=== PATIENT | female | born 1985 | race Caucasian/White ===

== ENCOUNTER 2019-12-20 15:41 | Outpatient (CLI) | payer OTHER | END 2019-12-20 15:55 | disposition home or self-care (01) | LOC: NST 15:41 | PROVIDERS: ATTEND Obstetrics & Gynecology | DX: Z34.83 Encounter for supervision of other normal pregnancy, third trimester (principal) ==

== ENCOUNTER 2019-12-29 09:31 | Inpatient (IN) | payer OTHER ==
[~2019-12-29] VITALS: Ht 157.5 cm; Wt 82.1 kg
[2020-01-12] MEDS ORDERED: PRENATAL TABLE1 EAC1 PO (06:36)
[2020-01-12] MEDS ORDERED: IRON325 MG PO (06:36)
== END 2020-01-14 12:24 | disposition home or self-care (01) | DRG 807 ==
LOC: ADM 12-31 09:30 → EDSTATUS 12-31 09:30 → LDR 01-12 06:14 → SURG-SUITE 01-12 06:14 → OB/GYN 01-18 09:30
PROVIDERS: ADMIT Obstetrics & Gynecology; ATTEND Obstetrics & Gynecology
PROC: 10E0XZZ Delivery of Products of Conception, External Approach (ICD-10-PCS; principal; 2020-01-12)
PROC: 4A1HXFZ Monitoring of Products of Conception, Cardiac Rhythm, External Approach (ICD-10-PCS; 2020-01-12)
PROC: 3E033VJ Introduction of Other Hormone into Peripheral Vein, Percutaneous Approach (ICD-10-PCS; 2020-01-12)
PROC: 10907ZC Drainage of Amniotic Fluid, Therapeutic from Products of Conception, Via Natural or Artificial Opening (ICD-10-PCS; 2020-01-12)
DX: O99.824 Streptococcus B carrier state complicating childbirth (principal); Z37.0 Single live birth; O71.82 Other specified trauma to perineum and vulva; O69.81X0 Labor and delivery complicated by cord around neck, without compression, not applicable or unspecified; Z3A.39 39 weeks gestation of pregnancy

== ENCOUNTER 2019-12-31 11:37 | Outpatient (CLI) | payer OTHER | END 2019-12-31 13:17 | disposition home or self-care (01) | LOC: NST 11:37 | PROVIDERS: ATTEND Obstetrics & Gynecology | DX: Z34.83 Encounter for supervision of other normal pregnancy, third trimester (principal) ==

== ENCOUNTER 2024-07-23 05:47 | Day surgery (SDC) | payer OTHER ==
[2024-07-03 09:33] LABS: HEMATOCRIT 38.1 % (36.0-45.00); HEMOGLOBIN 12.6 g/dL (12.0-15.00); MEAN CELL VOLUME 89.7 fL (80.00-100.00); MEAN CORPUSCULAR HEMOGLOBIN 29.8 pg (27.00-32.0); MEAN CORPUSCULAR HGB CONC 33.2 g/dl (32.0-36.0); PLATELET COUNT 370 K/uL (150-450); RED BLOOD COUNT 4.25 M/uL (4.00-6.00); RED CELL DISTRIBUTION WIDTH 13.7 % (11.5-14.5)
[2024-07-03 09:35] VITALS: BP 122/79
[2024-07-03 10:16] LABS: PARTIAL THROMBOPLASTIN TIME 29.1 SECONDS (22.0-34.0); PROTHROMBIN TIME 10.9 SECONDS (9.0-11.5)
[2024-07-03 10:22] LABS: BILIRUBIN TOTAL 0.43 mg/dL (0.3-1.2); CALCIUM 9.3 mg/dL (8.5-10.1); CREATININE SERUM 0.62 mg/dL (0.55-1.02); GFR 107.16; GLOBULINA 3.5 G/DL (2.4-3.5); POTASSIUM 4.1 mEq/L (3.5-5.1); TOTAL PROTEIN 7.5 gm/dL (6.4-8.2)
[~2024-07-23] VITALS: Ht 157.5 cm; Wt 68.9 kg
[~2024-07-23 05:47] MED LIST: IRON325 MG PO; PRENATAL TABLE1 EAC1 PO
[2024-07-23] MEDS ORDERED: CHLORHEXIDINE GLUCONATE 120 ML BOTTLE TOP ONE (07:12)
[2024-07-23] MEDS ORDERED: POVIDONE-IODINE 118 ML BOTT TOP ONE (07:12)
== END 2024-07-23 13:15 | disposition home or self-care (01) ==
LOC: CIR.AMB 05:47
PROVIDERS: ATTEND Obstetrics & Gynecology Maternal & Fetal Medicine
DX: N84.0 Polyp of corpus uteri (principal)